=== PATIENT | male | born 1995 | race American Indian/Alaskan Native ===

== ENCOUNTER 2017-10-16 12:00 | Outpatient (CLI) | payer OTHER ==
--- NOTE | 2017-10-16 12:35 | XRay Report ---
XRAY LEFT FOREARM TWO VIEWS : 10/16/17 12:00:00 CLINICAL: Pain. FINDINGS: Normal bones, joints and soft tissues. No fracture or dislocation. IMPRESSION: Normal study.
== END 2017-10-16 12:01 | disposition home or self-care (01) ==
LOC: SPVIMAG 12:00
PROVIDERS: ATTEND Orthopaedic Surgery
DX: M79.632 Pain in left forearm (principal)